=== PATIENT | male | born 1965 | race Caucasian/White ===

== ENCOUNTER 2020-08-27 15:23 | Inpatient (IN) | payer OTHER ==
[2020-08-27] MEDS ORDERED: IBUPROFEN 400 MG TABLET (FP) PO PRN (16:54)
[2020-08-27] MEDS ORDERED: NICOTINE POLACRILEX 2 MG GUM BUC PRN (16:54)
[2020-08-27] MEDS ORDERED: ONDANSETRON *ODT* 4 MG TABLET SL PRN (16:54)
[2020-08-27] MEDS ORDERED: ACETAMINOPHEN 325 MG TABLET (FP) PO PRN ×2 (16:54)
[2020-08-27] MEDS ORDERED: MENTHOL/PHENOL 1 EACH UD MM PRN (16:54)
[2020-08-27] MEDS ORDERED: chlordiazePOXIDE HCL 25 MG CAPSULE PO PRN (16:54)
[2020-08-27] MEDS ORDERED: MAGNESIUM HYDROX 2400MG/30ML ORAL SUSPENSION 30 ML CUP PO PRN (16:54)
[2020-08-27] MEDS ORDERED: METHOCARBAMOL 500 MG TABLET PO PRN (16:54)
[2020-08-27] MEDS ORDERED: MAG HYDROX/AL HYDROX/SIMETH 30 ML UNIT-DOSE CUP PO PRN (16:54)
[2020-08-27] MEDS ORDERED: MAGNESIUM CITRATE 300 ML BOTTLE PO PRN (16:54)
[2020-08-27] MEDS ORDERED: BISMUTH SUBSALICYLATE 524 MG/30 ML UD PO PRN (16:54)
[2020-08-27 17:45] VITALS: BMI 29.9
[2020-08-27] MEDS ORDERED: MELATONIN 5 MG TABLETS PO SCH (22:00)
[2020-08-27] MEDS ORDERED: THIAMINE HCL 100 MG TABLET (FP) PO SCH (22:00)
[2020-08-27] MEDS: chlordiazePOXIDE HCL 25 MG CAPSULE PO SCH (22:02)
[2020-08-28] MEDS: chlordiazePOXIDE HCL 25 MG CAPSULE PO SCH ×3 (05:53→18:11)
[2020-08-28] MEDS ORDERED: PRENATAL VITAMINS W/ FOLIC ACID TABLET (FP) PO SCH (10:00)
[2020-08-28] MEDS ORDERED: NICOTINE 21 MG/24 HOURS TOPICAL PATCH TD SCH (10:00)
[2020-08-28 11:43] LABS: HEMATOCRIT 42.1 % (35.4-49); MCHC 33.3 g/dl (32.0-35.9); MEAN PLT VOLUME 8.2 fl (7.5-11.1); PLATELET COUNT 291 K/MM3 (134-434); RBC 4.68 M/mm3 (4.00-5.60); RDW 14.7 % (11.9-15.9); WHITE BLOOD COUNT 7.1 K/mm3 (4.0-10.0)
[2020-08-28 11:57] LABS: POTASSIUM 4.5 mmol/L (3.5-5.1)
[2020-08-28 12:27] LABS: BILIRUBIN,TOTAL 0.8 mg/dL (0.2-1); CREATININE 0.6 mg/dL (0.55-1.3)
[2020-08-28 12:28] LABS: TOT PROT 6.6 g/dl (6.4-8.2)
[2020-08-28 12:34] LABS: CALCIUM 8.9 mg/dL (8.5-10.1)
[2020-08-28 12:35] LABS: BLOOD UREA NITROGEN 9.8 mg/dL (7-18)
[2020-08-28 13:09] VITALS: BP 134/65; PULSE 61; TEMP 97.3
[2020-08-29] MEDS ORDERED: chlordiazePOXIDE HCL 25 MG CAPSULE PO SCH (05:00)
[2020-08-30] MEDS ORDERED: chlordiazePOXIDE HCL 10 MG CAPSULE PO PRN
[2020-08-30] MEDS ORDERED: chlordiazePOXIDE HCL 10 MG CAPSULE PO SCH (05:00)
[2020-08-31] MEDS ORDERED: chlordiazePOXIDE HCL 10 MG CAPSULE PO SCH (05:00)
[2020-09-01] MEDS ORDERED: chlordiazePOXIDE HCL 10 MG CAPSULE PO ONE (05:00)
== END 2020-08-28 18:22 | disposition left against medical advice (07) | DRG 770 ==
LOC: YASAS 15:23 → Y3N 17:12
PROVIDERS: ADMIT Allergy & Immunology; ATTEND Allergy & Immunology
PROC: HZ2ZZZZ Detoxification Services for Substance Abuse Treatment (ICD-10-PCS; principal; 2020-08-27)
DX: F10.230 Alcohol dependence with withdrawal, uncomplicated (principal); F17.210 Nicotine dependence, cigarettes, uncomplicated; I10 Essential (primary) hypertension; E78.5 Hyperlipidemia, unspecified; E11.9 Type 2 diabetes mellitus without complications; Z79.4 Long term (current) use of insulin; R56.9 Unspecified convulsions; R74.01 Elevation of levels of liver transaminase levels
CPT/HCPCS: 36415; 80053; 82962; 85027; 86780; C9803; U0003